=== PATIENT | female | born 1975 | race Caucasian/White ===

== ENCOUNTER 2020-10-04 16:35 | Emergency (ER) | payer MEDICARE ==
[~2020-10-04 16:35] MED LIST: APTIOM400 MG PO; APTIOM800 MG PO; BUSPIRONE HCL10 MG PO; CALCIUM600 MG PO; DEPAKOTE ER500 MG PO; IBUPROFEN800 MG PO; LEXAPRO20 MG PO; MAG-OXIDE 400M400 MG PO; VITAMIN B-122500 MCG PO; VITAMIN D250 MCG PO; ZOFRAN4 MG PO
[2020-10-04 17:01] LABS: EOSINOPHIL 1.1 % (0-5); HCT 46.7 % (37.0-47.0); HGB 15.5 g/dl (12.5-16.0); MCH 32.4 pg (25.0-31.0); MCHC 33.2 g/dL (32.0-36.0); MCV 97.7 fL (78.0-100.0); MONOCYTE 9.6 % (0-12); MPV 9.2 fL (6.0-9.5); NEUTROPHIL 56.8 % (41-80); NRBC 0; PLT 371 K/uL (150-400); RBC 4.78 M/uL (4.20-5.40); RDW 14.1 % (11.5-14.0); WBC 12.4 K/uL (4.0-10.5)
[2020-10-04 17:58] LABS: BILIRUBIN NEGATIVE (NEGATIVE); BLOOD TRACE-INTACT Ery/uL (NEGATIVE); CLARITY CLEAR (CLEAR); COLOR YELLOW (YELLOW); GLUCOSE (U) NORMAL (NORMAL); LEUKOCYTES NEGATIVE Leu/uL (NEGATIVE); NITRITE NEGATIVE (NEGATIVE); PROTEIN 2+ mg/dL (NEGATIVE); SPECIFIC GRAVITY >=1.030 (1.001-1.030); UROBILINOGEN 0.2 mg/dL (0.2-1.0)
[2020-10-04 17:58] LABS: HCG (URINE) SCREEN NEGATIVE (NEGATIVE)
[2020-10-04 18:02] LABS: ALBUMIN 3.8 g/dL (3.4-5.0); ALKALINE PHOSHATASE 70 U/L (46-116); ALT 20 U/L (14-59); AST 14 U/L (15-37); BILIRUBIN - TOTAL 0.1 mg/dL (0.2-1.0); BUN 11 mg/dL (7-18); BUN/CREAT RATIO (CALC) 16.7 RATIO; CHLORIDE 103 mmol/L (98-107); CO2 (BICARBONATE) 26 mmol/L (21-32); CREATININE 0.66 mg/dL (0.51-0.95); DEPAKENE/VALPROIC ACID 28.5 ug/mL (50.0-100.0); GLOBULIN (CALCULATION) 3.8 g/dL; GLUCOSE 198 mg/dL (74-106); MAGNESIUM 1.8 mg/dL (1.8-2.4); POTASSIUM 3.4 mmol/L (3.5-5.1); TOTAL PROTEIN 7.6 g/dL (6.4-8.2)
[2020-10-04 18:03] LABS: AMPHETAMINES NEGATIVE (NEGATIVE); BARBITURATES NEGATIVE (NEGATIVE); ECSTASY (MDMA) NEGATIVE (NEGATIVE); MARIJUANA (THC) POSITIVE (NEGATIVE); METHADONE NEGATIVE (NEGATIVE); OPIATES NEGATIVE (NEGATIVE); OXYCODONE NEGATIVE (NEGATIVE)
[2020-10-04 18:03] LABS: ACETAMINOPHEN (TYLENOL) < 2.0 ug/mL (10.0-30.0)
[2020-10-04 18:08] LABS: BACTERIA 1+
[2020-10-04 18:10] LABS: URINARY RBC RARE; URINARY WBC RARE
== END 2020-10-04 22:43 | disposition other institution (70) ==
LOC: FER 16:35
PROVIDERS: Emergency Medicine
DX: G40.901 Epilepsy, unspecified, not intractable, with status epilepticus (principal); G83.84 Todd's paralysis (postepileptic); Z91.048 Other nonmedicinal substance allergy status; Z20.822 Contact with and (suspected) exposure to COVID-19
CPT/HCPCS: 36415; 36600; 70450; 71045; 80053; 80164; 80305; 81001; 82803; 83605; 83735; 84703; 85025; 87040; 87088; 93005; G0480; J1953; J2060; J2543; J2704; J3370; J7030; J7050; U0002